=== PATIENT | female | born 1930 | race Caucasian/White ===

== ENCOUNTER 2016-11-20 17:21 | Observation (INO) | payer MEDICARE, MEDICAID ==
[~2016-11-20 17:21] MED LIST: AMLODIPINE BESY10 M1 PO; BACTRIM DS TAB1 EAC2 PO; BETAMETHASONE D15 G5 TOP; BETAMETHASONE D15 G6 APL; CELEBREX200 M1 PO; CLOTRIMAZOLE AF TP; COUMADIN1 M1 PO; FEOSOL325 M1 PO; IMODIUM A-D2 M3 PO; INCRUSE ELLI62.5 MCG IH; LASIX40 M1 PO; LEVOTHYROXINE100 MC1 PO; LISINOPRIL-HCT1 EAC2 PO; LOPERAMIDE2 M2 PO; LOTRIMIN AF12 GM TOP; NEURONTIN300 M1 PO; NORCO 7.5-3251 EACH PO; NORVASC5 M2 PO; OMEPRAZOLE40 M2 PO; OXYBUTYNIN CHLOR5 M3 PO; POTASSIUM CHLO20 ME3 PO; SERTRALINE HCL50 M4 PO; SYNTHROID100 MC1 PO; THERACRAN PO; TYLENOL325 M2 PO; ULTRAM50 M1 PO; VENTOLIN HFA18 G2 INH; VESICARE5 M1 PO; ZOCOR20 M1 PO; ZOLOFT50 M1 PO
[2016-11-20 20:51] LABS: BASO % 0.3 % (0-2); EOS % 0.9 % (0-7); EOSINOPHIL ABSOLUTE COUNT 0.1 tho/cmm (0.0-0.7); HGB-HEMOGLOBIN 14.6 gm/dl (12.0-15.5); IMMATURE GRANULOCYTES ABSOLUTE 0.03 tho/cmm (0-0.03); IMMATURE GRANULOCYTES PERCENT 0.4 % (0-0.3); LYMPH % 18.6 % (20-45); LYMPH ABSOLUTE COUNT 1.5 tho/cmm (0.8-4.5); MCH (MEAN CORPUSCULAR HGB) 29.2 pg (28.0-32.0); MCHC MEAN CORPUSCULAR HGB CONC 32.4 % (32.0-36.0); MEAN PLATELET VOLUME 9.7 cmc (9.4-12.4); MONO % 8.7 % (0-12); MONOCYTE ABSOLUTE COUNT 0.7 tho/cmm (0.0-1.2); NEUTROPHIL ABSOLUTE COUNT 5.6 tho/cmm (1.6-8.0); NEUTROPHIL-AUTOMATED 5.6 tho/cmm (1.6-8.0); NEUTROPHILS % 71.1 % (40-80); PLATELET COUNT 179 tho/cmm (150-450); WHITE BLOOD COUNT 7.9 tho/cmm (4.0-10.0)
[2016-11-20 20:56] LABS: INR 3.5 INR (0.9-1.1); PROTHROMBIN TIME 41.8 SECONDS (9.0-13.6)
[2016-11-20 21:03] LABS: ANION GAP 11 mmol/L (0-20); BLOOD UREA NITROGEN 17 mg/dl (6-24); CALCIUM 9.4 mg/dl (8.5-10.5); CARBON DIOXIDE-VENOUS 32 mmol/L (22-32); CHLORIDE 100 mmol/l (96-110); CREATININE 1.42 mg/dl (0.50-1.10); GLUCOSE 142 mg/dL (70-110); POTASSIUM 4.1 mmol/L (3.7-5.1); SODIUM 139 mmol/L (135-145); eGFR VALUE FOR BLACK 38 mL/Min
[2016-11-21] MEDS ORDERED: LIDODERM1 EACH TOP (16:36)
== END 2016-11-21 17:15 | disposition home health service (06) ==
LOC: 5WE 17:21
PROVIDERS: Nurse Practitioner Acute Care; ADMIT Internal Medicine
DX: S22.059A Unspecified fracture of T5-T6 vertebra, initial encounter for closed fracture (principal); E03.9 Hypothyroidism, unspecified; E11.22 Type 2 diabetes mellitus with diabetic chronic kidney disease; N18.3 Chronic kidney disease, stage 3 (moderate); I48.2 Chronic atrial fibrillation; J44.9 Chronic obstructive pulmonary disease, unspecified; R09.02 Hypoxemia; Z79.899 Other long term (current) drug therapy; Z79.01 Long term (current) use of anticoagulants; Z88.2 Allergy status to sulfonamides; Z88.8 Allergy status to other drugs, medicaments and biological substances; Z85.038 Personal history of other malignant neoplasm of large intestine; W19.XXXA Unspecified fall, initial encounter
CPT/HCPCS: G0378; G0379; G8978-GO-CJ; G8978-GP-CK; G8979-GO-CI; G8979-GP-CJ; G8980-GO-CJ; G8980-GP-CK; J2270